=== PATIENT | male | born 1955 | race Caucasian/White ===

== ENCOUNTER 2022-03-30 17:00 | Inpatient (IN) | payer MEDICARE, OTHER ==
[~2022-03-30] VITALS: Ht 167.6 cm; Wt 51.3 kg
--- NOTE | 2022-03-30 18:15 | NUR ---
Pt arrived BIBA with c/o SOB. Pt is on 15Lpm of O2 and saturating on 100%. Seen by ERMD for MSE.
[2022-03-30 18:21] LABS: HEMATOCRIT 31.1 % (36.7-47.1); MEAN CORPUSCULAR VOLUME 73.8 fL (73.0-96.2); PLATELET COUNT (AUTO) 675 K/uL (152-348)
[2022-03-30 18:51] LABS: CARBON DIOXIDE 34 mmol/L (21-32); CHLORIDE 98 mmol/L (98-107); CREATININE 0.4 mg/dL (0.6-1.3); GLUCOSE 133 mg/dL (74-106); POTASSIUM 5.4 mmol/L (3.5-5.1); UREA NITROGEN, BLOOD 10 mg/dL (7-18)
[2022-03-30 19:03] LABS: ALANINE AMINOTRANSFERASE 11 U/L (16-63); ALKALINE PHOSPHATASE 125 U/L (50-136); ASPARTATE AMINOTRANSFERASE 42 U/L (15-37); BILIRUBIN,DIRECT < 0.1 mg/dL (0.0-0.2); BILIRUBIN,TOTAL 0.2 mg/dL (0.2-1.0); TOTAL PROTEIN, SERUM 7.2 g/dL (6.4-8.2)
--- NOTE | 2022-03-30 19:13 | NUR ---
Endorsed to Sherrie KEE.
[2022-03-30 19:24] LABS: EOSINOPHILS % (MANUAL) 1 % (0-8); LYMPHOCYTES % (MANUAL) 7 % (20-40); MONOCYTES % (MANUAL) 3 % (2-10); NEUTROPHILS % (MANUAL) 89 % (42-75)
[2022-03-30] MEDS ORDERED: CEFTRIAXONE 1 G in IV DEXTROSE 5% 50 ML IV ONE (19:30)
[2022-03-30] MEDS ORDERED: AZITHROMYCIN IV 500 MG in IV DEXTROSE 5% 250 ML IV ONE (19:30)
[2022-03-30] MEDS ORDERED: FUROSEMIDE 40 MG/4 ML VIAL IV ONE (19:30)
--- NOTE | 2022-03-30 19:30 | NUR ---
Patient is admitted to CCU. no CCU bed available at this moment. Patient will be in ER until CCU bed is available. ER charting will be done
[2022-03-30 19:48] LABS: ABG BASE EXCESS 9.5 mmol/L; ABG HCO3 35.5 mmol/L; ABG PCO2 56.7 mmHg (35.0-45.0); ABG PH 7.415 (7.350-7.450); ABG PO2 403.5 mmHg (75.0-100.0); ABG SITE LEFT RADIAL; ABG TOTAL HEMOGLOBIN 9.8 G/dL (13.5-18.0); COHb 0.2 % (0.5-1.5); MetHb 0.3 % (0.0-1.5); O2Hb 99.5 % (94.0-97.0); VENT MODE BIPAP
[2022-03-30] MEDS ORDERED: CEFTRIAXONE /D5W 50ML IVPB **ER PYXIS IV ONE (19:50)
[2022-03-30] MEDS ORDERED: AZITHROMYCIN 500MG/ D5W 250ML IVPB **ER PYXIS ONLY IV ONE (19:51)
[2022-03-30 21:13] LABS: ABG BASE EXCESS 9.4 mmol/L; ABG HCO3 34.8 mmol/L; ABG PCO2 51.7 mmHg (35.0-45.0); ABG PH 7.446 (7.350-7.450); ABG PO2 106.1 mmHg (75.0-100.0); ABG SITE LEFT RADIAL; ABG TOTAL HEMOGLOBIN 10.6 G/dL (13.5-18.0); COHb 0.1 % (0.5-1.5); MetHb 0.3 % (0.0-1.5); O2Hb 97.9 % (94.0-97.0); VENT MODE BIPAP
[2022-03-30] MEDS ORDERED: MAGNESIUM HYDROXIDE 30 ML LIQUID UDC PO PRN (22:00)
[2022-03-30] MEDS ORDERED: ONDANSETRON 4 MG/2 ML VIAL IV PRN (22:00)
[2022-03-30] MEDS ORDERED: ACETAMINOPHEN 325 MG TABLET PO PRN (22:00)
[2022-03-30] MEDS ORDERED: DEXTROSE 50% 50 ML DISP.SYRIN IV PRN (22:00)
[2022-03-30] MEDS ORDERED: REMEDY ESSENTIAL ZINC PASTE 113 GM TP PRN (22:00)
[2022-03-30 22:31] LABS: IRON, SERUM 33 ug/dL (50-175)
[2022-03-30 22:55] LABS: FERRITIN 2803 ng/mL (26-388)
[2022-03-31] VITALS (11 sets, daily range): BP systolic 94–112; BP diastolic 46–69
[2022-03-31] MEDS: BLOOD SUGAR DIAGNOSTIC 1 EACH STRIP VI SCH ×4 (00:20→17:56)
[2022-03-31] MEDS ORDERED: ENOXAPARIN SODIUM 40 MG/0.4 ML DISP.SYRIN SQ ONE ×2 (00:40→21:25)
[2022-03-31] MEDS: ENOXAPARIN SODIUM 40 MG/0.4 ML DISP.SYRIN SQ SCH ×2 (00:43→21:27)
[2022-03-31] MEDS ORDERED: methylPREDNISolone SOD SUCC 40 MG/ML VIAL ONE ×4 (00:43→17:33)
[2022-03-31] MEDS: methylPREDNISolone SOD SUCC 40 MG/ML VIAL IV SCH ×4 (00:46→17:52)
--- NOTE | 2022-03-31 03:32 | NUR ---
PATIENT PLACED ON BI/PAP WITH LARGE FULL MASK, APPROX. 19:00 BY RT , WITH CURRENT INITIAL SETTINGS, 15/5, R16, 100%, WITH ABG DONE AT 19;35, TITRATE FIO2 TO 40%, GIVEN RESULTS TO DR Lorenzo CARTER , 40%, ALSO ANOTHER ABG DONE BY 20;50, SAT 99%, RESTING WELL. Kika HOFFMAN SAFETY EQUIPMENT TESTER Addendum: 03/31/22 at 0335 by STEVE HOFFMAN RT Amended: Links added.
[2022-03-31 07:15] LABS: HEMATOCRIT 29.4 % (36.7-47.1); MEAN CORPUSCULAR HEMOGLOBIN 22.6 uug (23.8-33.4); MEAN CORPUSCULAR VOLUME 73.4 fL (73.0-96.2); PLATELET COUNT (AUTO) 645 K/uL (152-348)
--- NOTE | 2022-03-31 07:15 | NUR ---
Electrician [employer] assumes care: nursing SBAR received from CHILANGO Balderas. This is an ICU/CCU patient holding in ER, pending available ICU/CCU nurse & bed in 2nd floor. Patient is resting comfortably in bed with eyes closed, tolerating BIPAP well with current parameters: 15/5, FiO2=40%
[2022-03-31 07:42] LABS: CARBON DIOXIDE 35 mmol/L (21-32); CHLORIDE 95 mmol/L (98-107); CHOLESTEROL 190 mg/dL (<200); CREATININE 0.5 mg/dL (0.6-1.3); GLUCOSE 140 mg/dL (74-106); HDL CHOLESTEROL 42 mg/dL (40-60); MAGNESIUM 1.8 mg/dL (1.8-2.4); PHOSPHOROUS 4.6 mg/dL (2.5-4.9); TRIGLYCERIDES 102 MG/DL (30-150); UREA NITROGEN, BLOOD 11 mg/dL (7-18)
--- NOTE | 2022-03-31 11:34 | NUR ---
Nursing SBAR given to ICU/CCU nurse Maico Hoover.
[2022-03-31] MEDS: INSULIN REGULAR, HUMAN 300 UNIT/3 ML VIAL SQ PRN ×2 (12:34→17:57)
[2022-03-31] MEDS ORDERED: CLON0.1T PO (13:42)
[2022-03-31] MEDS ORDERED: APIX5TAB PO (13:42)
[2022-03-31] MEDS ORDERED: CRAN425C6 PO (13:42)
[2022-03-31] MEDS ORDERED: DOCU-141 PO (13:44)
[2022-03-31] MEDS ORDERED: FAMO-132 PO (13:44)
[2022-03-31] MEDS ORDERED: FERR325T28 PO (13:44)
[2022-03-31] MEDS ORDERED: IPRA0.2S6 NEB (13:45)
[2022-03-31] MEDS ORDERED: HYDR-4209 PO (13:45)
[2022-03-31] MEDS ORDERED: INSU100I45 SQ (13:45)
[2022-03-31] MEDS ORDERED: LABE100T5 PO (13:48)
[2022-03-31] MEDS ORDERED: SITA100T PO (13:48)
[2022-03-31] MEDS ORDERED: MAGN400O6 PO (13:49)
[2022-03-31] MEDS ORDERED: MULT-1075 PO (13:49)
[2022-03-31] MEDS ORDERED: BLOO-360 IN (13:50)
[2022-03-31] MEDS ORDERED: PRED20TA PO (13:52)
[2022-03-31] MEDS ORDERED: SILD20TA2 PO (13:52)
[2022-03-31] MEDS ORDERED: QUET50TA PO (13:52)
[2022-03-31] MEDS ORDERED: ERTU5TAB PO (13:55)
[2022-03-31] MEDS ORDERED: BENZ-13 PO (13:55)
[2022-03-31] MEDS ORDERED: ACET-2605 PO ×2 (13:55)
[2022-03-31] MEDS ORDERED: ACET-2154 PO (13:56)
[2022-03-31] MEDS ORDERED: CHOL-35 PO (13:58)
[2022-03-31] MEDS ORDERED: ASCO500T10 PO (13:58)
[2022-03-31] MEDS ORDERED: CRAN3875 PO (13:58)
--- NOTE | 2022-03-31 15:20 | NUR ---
shift change, AM technologist informed that RN will call when ready for CT Chest w/o contrast to be done by 5pm
--- NOTE | 2022-03-31 18:14 | NUR ---
phoned the ER for the patient for update, RT not available. RN will call Radiology Department when ready.
[2022-03-31] MEDS ORDERED: IPRATROPIUM BROMIDE 0.5 MG/2.5 ML NEBU NEB PRN (19:45)
[2022-03-31] MEDS ORDERED: ALBUTEROL SULFATE 2.5 MG/3 ML NEBU NEB PRN (19:45)
[2022-03-31] MEDS ORDERED: CEFTRIAXONE 1 G in IV DEXTROSE 5% 50 ML IV SCH (20:00)
[2022-03-31] MEDS ORDERED: AZITHROMYCIN 500MG/ D5W 250ML IVPB **ER PYXIS ONLY IV ONE (21:25)
[2022-03-31] MEDS: FAMOTIDINE. 20 MG/2 ML VIAL IV SCH (21:26)
[2022-03-31] MEDS ORDERED: FAMOTIDINE. 20 MG/2 ML VIAL IV ONE (21:26)
[2022-03-31] MEDS: AZITHROMYCIN IV 500 MG in IV DEXTROSE 5% 250 ML IV SCH (21:26)
[2022-03-31] MEDS ORDERED: CEFEPIME HCL 1 G VIAL ONE (22:05)
[2022-03-31] MEDS: CEFEPIME HCL 1 G in IV DEXTROSE 5% 50 ML IV SCH (22:09)
--- NOTE | 2022-03-31 22:55 | NUR ---
Transfered to CCU via [facility] with no distress noted
[2022-04-01] VITALS (20 sets, daily range): BP systolic 101–138; BP diastolic 60–84
[2022-04-01] MEDS: methylPREDNISolone SOD SUCC 40 MG/ML VIAL IV SCH ×4 (00:12→19:58)
[2022-04-01] MEDS: BLOOD SUGAR DIAGNOSTIC 1 EACH STRIP VI SCH ×4 (00:25→12:00)
--- NOTE | 2022-04-01 00:42 | NUR ---
RECEIVED REPORT FROM ER NURSE ANDNAGI RN, PATIENT TRANSFER VIA GURNEY, COMPLETE ASSESSMENT DONE AND BI-PAP IN PLACE AND TOLERATED WELL.
--- NOTE | 2022-04-01 02:38 | NUR ---
LORENA CHEN MADE AWARE OF CHEST CT NNO, JUST HAVE DAY SHIFT TO F/U.
--- NOTE | 2022-04-01 04:31 | NUR ---
PATIENT WAS IN ER, THEN LATER TRANSPORTED TO CCU #3 WITH RT ASSIST, PT BACK ON BI/PAP WITH SETTINGS, 15/5, R16, 40%, TITRATE TO 35%, TAKE OFF APPOX. 0500, WAIT 1 HOUR ,ABG TO BE DONE OFF BI/PAP. Kika HOFFMAN UI DESIGNER Addendum: 04/01/22 at 0433 by STEVE HOFFMAN RT Amended: Links added.
[2022-04-01 05:41] LABS: HEMATOCRIT 28.1 % (36.7-47.1); MEAN CORPUSCULAR HEMOGLOBIN 22.4 uug (23.8-33.4); MEAN CORPUSCULAR VOLUME 72.9 fL (73.0-96.2); PLATELET COUNT (AUTO) 708 K/uL (152-348)
[2022-04-01 05:43] LABS: CARBON DIOXIDE 36 mmol/L (21-32); CHLORIDE 98 mmol/L (98-107); CREATININE 0.5 mg/dL (0.6-1.3); GLUCOSE 165 mg/dL (74-106); MAGNESIUM 1.8 mg/dL (1.8-2.4); PHOSPHOROUS 3.7 mg/dL (2.5-4.9); POTASSIUM 4.1 mmol/L (3.5-5.1); UREA NITROGEN, BLOOD 28 mg/dL (7-18)
[2022-04-01 06:08] LABS: ABG BASE EXCESS 6.2 mmol/L; ABG PCO2 46.3 mmHg (35.0-45.0); ABG PH 7.444 (7.350-7.450); ABG PO2 82.5 mmHg (75.0-100.0); ABG SITE LEFT RADIAL; ABG TOTAL HEMOGLOBIN 10.3 G/dL (13.5-18.0); COHb 0.2 % (0.5-1.5); MetHb 0.1 % (0.0-1.5); O2Hb 96.1 % (94.0-97.0); VENT MODE Nasal Cannula
[2022-04-01 06:36] LABS: LYMPHOCYTES % (MANUAL) 10 % (20-40); MONOCYTES % (MANUAL) 5 % (2-10); NEUTROPHILS % (MANUAL) 85 % (42-75)
[2022-04-01] MEDS: CEFEPIME HCL 1 G in IV DEXTROSE 5% 50 ML IV SCH ×3 (06:39→22:00)
--- NOTE | 2022-04-01 09:12 | NUR ---
PT c/o feeling hot and became restless. 02 sat 75 with o2 via NC at 4l/min. O2 increased to 5 l min NC and RT called. . Placed back on the BIPAP as o2sat went to 75. will continue to monitor.
[2022-04-01] MEDS ORDERED: LORAZEPAM 2 MG/1 ML VIAL IV PRN (09:30)
[2022-04-01] MEDS: FAMOTIDINE. 20 MG/2 ML VIAL IV SCH (09:40)
--- NOTE | 2022-04-01 10:00 | NUR ---
Patient is asleep. resting well with BIPAP in place , I/E 13/ as per RT's report.
[2022-04-01] MEDS: CHOLECALCIFEROL 1,000 UNIT TABLET PO SCH (10:15)
[2022-04-01] MEDS: MULTIVITAMINS,THERAPEUTIC TABLET PO SCH (10:15)
[2022-04-01] MEDS: APIXABAN 5 MG TABLET PO SCH ×2 (10:15→21:00)
--- NOTE | 2022-04-01 10:59 | NUR ---
ABG COMPLETED BY RT. Result called to MD Ember Chambers. hco3 is 10.9, ph 7.29,,poa 108.8. Awaits orderes.
[2022-04-01] MEDS: SILDENAFIL 20 MG TABLET PO SCH (14:00)
[2022-04-01] MEDS: ASCORBIC ACID 500 MG TABLET PO SCH (18:00)
[2022-04-01] MEDS: FERROUS SULFATE 325 MG TABEC PO SCH (18:00)
--- NOTE | 2022-04-01 19:00 | NUR ---
RECEIVED REPORT FROM DAV KEE, IPAD SET UP FOR PATIENT FOR QATARI INTERPRETATION.
[2022-04-01] MEDS ORDERED: DOCUSATE SODIUM 100 MG CAPSULE PO SCH (21:00)
[2022-04-01] MEDS: AZITHROMYCIN IV 500 MG in IV DEXTROSE 5% 250 ML IV SCH (21:11)
[2022-04-01] MEDS: QUETIAPINE FUMARATE 25 MG TABLET PO SCH (21:14)
--- NOTE | 2022-04-01 22:59 | NUR ---
data warehousing architect error
--- NOTE | 2022-04-01 23:02 | NUR ---
Change of shift report given. Pt slept all day. Po meds were held due to drowsiness.Ember Chambers made aware.
[2022-04-02] VITALS (12 sets, daily range): BP systolic 90–106; BP diastolic 51–64
[2022-04-02] MEDS: methylPREDNISolone SOD SUCC 40 MG/ML VIAL IV SCH ×4 (00:47→18:51)
[2022-04-02] MEDS: SILDENAFIL 20 MG TABLET PO SCH ×4 (00:47→23:55)
[2022-04-02] MEDS: CEFEPIME HCL 1 G in IV DEXTROSE 5% 50 ML IV SCH ×3 (05:49→23:47)
[2022-04-02] MEDS: BLOOD SUGAR DIAGNOSTIC 1 EACH STRIP VI SCH ×2 (05:51)
[2022-04-02 05:53] LABS: ABG BASE EXCESS 10.9 mmol/L; ABG HCO3 36.2 mmol/L; ABG PCO2 52.3 mmHg (35.0-45.0); ABG PH 7.458 (7.350-7.450); ABG PO2 190.1 mmHg (75.0-100.0); ABG SITE RIGHT BRACHIAL; COHb 0.3 % (0.5-1.5); MetHb 0.3 % (0.0-1.5)
[2022-04-02] MEDS: APIXABAN 5 MG TABLET PO SCH ×2 (10:35→21:00)
[2022-04-02] MEDS: MULTIVITAMINS,THERAPEUTIC TABLET PO SCH (10:35)
[2022-04-02] MEDS: CHOLECALCIFEROL 1,000 UNIT TABLET PO SCH (10:36)
[2022-04-02] MEDS ORDERED: ONDANSETRON 4 MG/2 ML VIAL IV PRN (10:45)
[2022-04-02] MEDS: DOCUSATE SODIUM 100 MG CAPSULE PO SCH ×2 (10:46→23:44)
[2022-04-02] MEDS: FERROUS SULFATE 325 MG TABEC PO SCH (18:51)
[2022-04-02] MEDS: ASCORBIC ACID 500 MG TABLET PO SCH (18:51)
[2022-04-02] MEDS: AZITHROMYCIN 250 MG TABLET PO SCH (23:44)
[2022-04-02] MEDS: FAMOTIDINE 20 MG TABLET PO SCH (23:45)
[2022-04-02] MEDS: QUETIAPINE FUMARATE 25 MG TABLET PO SCH (23:56)
[2022-04-03] VITALS (18 sets, daily range): BP systolic 89–117; BP diastolic 35–76
[2022-04-03] MEDS: BLOOD SUGAR DIAGNOSTIC 1 EACH STRIP VI SCH ×4 (00:01→17:32)
--- NOTE | 2022-04-03 00:01 | NUR ---
Accucheck 138: refused Regular Insulin 2 units.
[2022-04-03] MEDS: INSULIN REGULAR, HUMAN 300 UNIT/3 ML VIAL SQ PRN ×3 (01:03→12:01)
[2022-04-03] MEDS: methylPREDNISolone SOD SUCC 40 MG/ML VIAL IV SCH ×4 (01:12→17:32)
[2022-04-03 04:51] LABS: HEMATOCRIT 28.9 % (36.7-47.1); MEAN CORPUSCULAR HEMOGLOBIN 22.1 uug (23.8-33.4); MEAN CORPUSCULAR VOLUME 72.7 fL (73.0-96.2); PLATELET COUNT (AUTO) 705 K/uL (152-348)
[2022-04-03 04:57] LABS: CARBON DIOXIDE 38 mmol/L (21-32); CHLORIDE 99 mmol/L (98-107); CREATININE 0.3 mg/dL (0.6-1.3); GLUCOSE 154 mg/dL (74-106); MAGNESIUM 2.2 mg/dL (1.8-2.4); PHOSPHOROUS 2.5 mg/dL (2.5-4.9); POTASSIUM 4.5 mmol/L (3.5-5.1); UREA NITROGEN, BLOOD 19 mg/dL (7-18)
[2022-04-03] MEDS: CEFEPIME HCL 1 G in IV DEXTROSE 5% 50 ML IV SCH ×3 (06:17→21:34)
[2022-04-03] MEDS: SILDENAFIL 20 MG TABLET PO SCH ×4 (06:17→22:00)
[2022-04-03] MEDS: PROTEIN SUPPLEMENT (PROSTAT) 30 ML LIQUID PO SCH (08:00)
[2022-04-03] MEDS ORDERED: DOCUSATE SODIUM 100 MG CAPSULE PO SCH (09:00)
[2022-04-03] MEDS: DOCUSATE SODIUM 100 MG CAPSULE PO SCH ×3 (09:35→21:32)
[2022-04-03] MEDS: CHOLECALCIFEROL 1,000 UNIT TABLET PO SCH (09:35)
[2022-04-03] MEDS: MULTIVITAMINS,THERAPEUTIC TABLET PO SCH (09:35)
[2022-04-03] MEDS: FAMOTIDINE 20 MG TABLET PO SCH ×3 (09:36→17:32)
[2022-04-03] MEDS: GLUCERNA SHAKE 237 ML CAN PO SCH (10:26)
[2022-04-03] MEDS: APIXABAN 5 MG TABLET PO SCH ×2 (11:32→21:00)
[2022-04-03] MEDS: ASCORBIC ACID 500 MG TABLET PO SCH (17:32)
[2022-04-03] MEDS: FERROUS SULFATE 325 MG TABEC PO SCH (17:32)
--- NOTE | 2022-04-03 18:52 | NUR ---
PT HAVE BEEN REFUSING SOME OF HIS MEDS AND LUNCH..TOTAL BATH GIVEN TODAY..LINENS CHANGED. PT REFUSED TO TAKE HIS INSULIN AND ALSO REFUSED DINNER..PT IN NO ACUTE DISTRESS AT THIS TIME..
[2022-04-03] MEDS: SENNOSIDES 1 TABLET PO SCH (19:00)
--- NOTE | 2022-04-03 19:13 | NUR ---
INTAKE 450 PASTRANA OUTPUT 1200
[2022-04-03] MEDS: QUETIAPINE FUMARATE 25 MG TABLET PO SCH ×2 (21:00→21:32)
[2022-04-03] MEDS: AZITHROMYCIN 250 MG TABLET PO SCH (21:33)
[2022-04-04] VITALS (11 sets, daily range): BP systolic 96–121; BP diastolic 52–84
[2022-04-04] MEDS: methylPREDNISolone SOD SUCC 40 MG/ML VIAL IV SCH ×4 (01:00→17:31)
[2022-04-04 05:37] LABS: HEMATOCRIT 28.1 % (36.7-47.1); MEAN CORPUSCULAR HEMOGLOBIN 22.5 uug (23.8-33.4); PLATELET COUNT (AUTO) 726 K/uL (152-348)
[2022-04-04] MEDS: CEFEPIME HCL 1 G in IV DEXTROSE 5% 50 ML IV SCH ×3 (05:37→21:02)
[2022-04-04 05:45] LABS: CHLORIDE 100 mmol/L (98-107); CREATININE 0.4 mg/dL (0.6-1.3); GLUCOSE 193 mg/dL (74-106); PHOSPHOROUS 2.7 mg/dL (2.5-4.9); POTASSIUM 3.8 mmol/L (3.5-5.1); UREA NITROGEN, BLOOD 17 mg/dL (7-18)
[2022-04-04 05:49] LABS: CARBON DIOXIDE 40 mmol/L (21-32)
[2022-04-04] MEDS: BLOOD SUGAR DIAGNOSTIC 1 EACH STRIP VI SCH ×4 (06:00→17:31)
[2022-04-04] MEDS: SILDENAFIL 20 MG TABLET PO SCH ×3 (06:00→21:05)
--- NOTE | 2022-04-04 06:00 | NUR ---
[id number] CONT. WITH STABLE VS. SR. IV I/P VIA RIGHT WRIST. PT HAS O2 4L/NC. RESPS ARE REG/UNLAB. POX 98%-100%. PT DENIES ANY PAIN. PT HAS BEEN NON-COMPLIANT REGARDING MED AND FOOD. PT REFUSED INSLULIN COVERAGE X2. PT ALSO REFUSED ALMOST ALL OF HIS MEDICATIONS. BOWLING BALL FINISHER GARRICK AND PHARM INFORMED. PT HAS F/C-U/O ADEQ-1000CC OUT-DARWIN/CLR. PT HAS BEEN SLEEPING QUIETLY. GEN COND. HAS BEEN STABLE. PT ENDORSED TO CHILANGO GRAY. CHAI KEE
[2022-04-04] MEDS: MULTIVITAMINS,THERAPEUTIC TABLET PO SCH (08:39)
[2022-04-04] MEDS: CHOLECALCIFEROL 1,000 UNIT TABLET PO SCH (08:39)
[2022-04-04] MEDS: FAMOTIDINE 20 MG TABLET PO SCH ×2 (08:39→17:31)
[2022-04-04] MEDS: DOCUSATE SODIUM 100 MG CAPSULE PO SCH ×2 (08:39→21:05)
[2022-04-04] MEDS: APIXABAN 5 MG TABLET PO SCH ×2 (08:41→21:06)
[2022-04-04] MEDS: GLUCERNA SHAKE 237 ML CAN PO SCH (08:51)
--- NOTE | 2022-04-04 10:50 | NUR ---
Attending MARIZA Garcia in the unit to follow up on pt. report given orders to downgrade pt. to telemetry received.
--- NOTE | 2022-04-04 14:25 | NUR ---
Received this transfer from CCU by bed. Placed on Tele TD, SR. Awake, alert, oriented x 4. O2 at 4L/NC with O2 sat of 100%, titrated to 3L/NC with O2 sat of 96%. Skin checked noted DTI on sacral area. Photo and skin care initiated. Repositioned in bed comfortably. Blount catheter to drainage bag with yellow urine.
[2022-04-04] MEDS: FERROUS SULFATE 325 MG TABEC PO SCH (17:31)
[2022-04-04] MEDS: ASCORBIC ACID 500 MG TABLET PO SCH (17:31)
--- NOTE | 2022-04-04 18:00 | NUR ---
O2 titrated to 2L/NC with O2 sat of 95%. Not in respiratory distress. Refused Insulin sliding scale.
[2022-04-04] MEDS: PROTEIN SUPPLEMENT (PROSTAT) 30 ML LIQUID PO SCH (21:00)
[2022-04-04] MEDS: QUETIAPINE FUMARATE 25 MG TABLET PO SCH (21:05)
[2022-04-04] MEDS: SENNOSIDES 1 TABLET PO SCH (21:09)
--- NOTE | 2022-04-04 21:30 | NUR ---
received in bed, alert oriented, no sob no chest pain, cont on 2 liter oxygen no desaturation noted, denies pain at this time. Patient took his 2100 medication po with food only, provided another dinner meal in order to take his meds, patient uncooperative with medication and care, patient refused to moved or turn and reposition, prefer to seat on his sacrum only, patient easily get upset for anything, approach calmly cont to monitor.
[2022-04-05] VITALS (8 sets, daily range): BP systolic 97–117; BP diastolic 54–71
[2022-04-05] MEDS: methylPREDNISolone SOD SUCC 40 MG/ML VIAL IV SCH ×3 (00:55→21:27)
[2022-04-05] MEDS: BLOOD SUGAR DIAGNOSTIC 1 EACH STRIP VI SCH ×4 (00:58→17:30)
--- NOTE | 2022-04-05 00:58 | NUR ---
blood sugar 253, refused insulin coverage.
[2022-04-05] MEDS: CEFEPIME HCL 1 G in IV DEXTROSE 5% 50 ML IV SCH ×3 (05:58→21:28)
--- NOTE | 2022-04-05 06:49 | NUR ---
patient continue to refused to take his 0600 po meds, patient wanted a hot meal with his medication, offered sugar free pudding or milk or apple juice but refused meds, patient claim that f/c not draining, but with yellow color urine, 1000cc of urine output. patient appear suspicious, paranoia behavior about everything food, care, etc. ,
[2022-04-05] MEDS: SILDENAFIL 20 MG TABLET PO SCH ×3 (07:08→21:27)
[2022-04-05 07:14] LABS: HEMATOCRIT 30.5 % (36.7-47.1); PLATELET COUNT (AUTO) 773 K/uL (152-348)
--- NOTE | 2022-04-05 07:30 | NUR ---
Sleeping, appears comfortable. O2 at 2L/NC. Tele SR
[2022-04-05 07:34] LABS: CARBON DIOXIDE 38 mmol/L (21-32); CHLORIDE 102 mmol/L (98-107); CREATININE 0.4 mg/dL (0.6-1.3); GLUCOSE 212 mg/dL (74-106); MAGNESIUM 2.4 mg/dL (1.8-2.4); PHOSPHOROUS 2.8 mg/dL (2.5-4.9); POTASSIUM 4.2 mmol/L (3.5-5.1); UREA NITROGEN, BLOOD 17 mg/dL (7-18)
[2022-04-05] MEDS: CHOLECALCIFEROL 1,000 UNIT TABLET PO SCH (08:27)
[2022-04-05] MEDS: DOCUSATE SODIUM 100 MG CAPSULE PO SCH ×2 (08:27→21:27)
[2022-04-05] MEDS: MULTIVITAMINS,THERAPEUTIC TABLET PO SCH (08:27)
[2022-04-05] MEDS: FAMOTIDINE 20 MG TABLET PO SCH ×2 (08:28→17:29)
[2022-04-05] MEDS: APIXABAN 5 MG TABLET PO SCH ×2 (08:28→21:39)
[2022-04-05] MEDS: GLUCERNA SHAKE 237 ML CAN PO SCH (08:29)
--- NOTE | 2022-04-05 11:00 | NUR ---
Assisted out of bed by PT x 2 , able to stand with steps
--- NOTE | 2022-04-05 11:18 | NUR ---
WOUND CARE CONSULT: PT SEEN FOR SKIN ASSESSMENT AND NOTED TO BE VERY THIN AND BONY WITH BLANCHABLE REDNESS TO SACRUM AND PERIANAL AREA OF EXCORIATION. RECOMMENDATIONS MADE FOR SKIN PROTECTION. DISCUSSED WITH NURSING STAFF. IN AGREEMENT WITH PLAN OF CARE. Addendum: 04/05/22 at 1120 by JUWAN VELEZ RN Amended: Links added.
[2022-04-05 11:40] LABS: LYMPHOCYTES % (MANUAL) 16 % (20-40); MONOCYTES % (MANUAL) 7 % (2-10); NEUTROPHILS % (MANUAL) 77 % (42-75)
--- NOTE | 2022-04-05 12:00 | NUR ---
BG 300, refused Insulin sliding scale
--- NOTE | 2022-04-05 14:00 | NUR ---
Transferred to bedside commode x 2 max assist. With BM to formed stool in moderate amount. With urge to void and severe suprapubic discomfort. Johnson catheter but not draining at this time. Transferred back to bed. Bladder scan done with 868 residual urine. Johnson catheter irrigated but then noted leakage of urine. New johnson catheter fr 16 placed with 900 initial urine output. Patient comfortable after.
[2022-04-05] MEDS: PROTEIN SUPPLEMENT (PROSTAT) 30 ML LIQUID PO SCH (15:41)
[2022-04-05] MEDS: ASCORBIC ACID 500 MG TABLET PO SCH (17:29)
[2022-04-05] MEDS: FERROUS SULFATE 325 MG TABEC PO SCH (17:29)
--- NOTE | 2022-04-05 18:24 | NUR ---
BG 188, refused Insulin sliding scale coverage. Blount catheter with adequate urine output. O2 at 1L/NC with O2 sat of 95%. Transferred to Tele.
[2022-04-05 19:15] LABS: *BILIRUBIN,URIN NEGATIVE (NEGATIVE); *BLOOD, URINE 1+ (NEGATIVE); *CLARITY,URINE CLEAR (CLEAR); *COLOR,URINE YELLOW (YELLOW); *KETONES,URINE NEGATIVE (NEGATIVE); *UROBILINOGEN,URINE 0.2 E.U./dl (NORMAL); LEUKOCYTE ESTERASE ,URINE TRACE (NEGATIVE); NITRITE, URINE NEGATIVE (NEGATIVE); PH,URINE 7.5 (5.0-8.0); UGLUCOSE NEGATIVE (NEGATIVE)
[2022-04-05] MEDS: QUETIAPINE FUMARATE 25 MG TABLET PO SCH (21:28)
[2022-04-05] MEDS: SENNOSIDES 1 TABLET PO SCH (21:28)
[2022-04-05 22:31] LABS: BACTERIA,URINE FEW /HPF (NONE SEEN); SQUAMOUS EPITHELIAL CELL,UR FEW /HPF (NONE SEEN); WBC,URINE 0-3 /HPF (0-3); YEAST,URINE RARE /HPF (NONE SEEN)
[2022-04-06] VITALS: BP 99/61
[2022-04-06] MEDS: BLOOD SUGAR DIAGNOSTIC 1 EACH STRIP VI SCH ×4 (00:37→18:57)
[2022-04-06] MEDS: INSULIN REGULAR, HUMAN 300 UNIT/3 ML VIAL SQ PRN (00:40)
[2022-04-06 04:00] VITALS: BP 98/63
--- NOTE | 2022-04-06 05:00 | NUR ---
AAOx4 Needs attended. VSS Patient on RA with pulse ox 95% No acute distress noted. Fall precautions maintained. Kept comfortable. Accucheck 189 refused coverage.
[2022-04-06] MEDS: CEFEPIME HCL 1 G in IV DEXTROSE 5% 50 ML IV SCH ×3 (05:41→21:00)
[2022-04-06] MEDS: SILDENAFIL 20 MG TABLET PO SCH ×3 (05:47→21:00)
[2022-04-06 07:39] LABS: HEMATOCRIT 31.1 % (36.7-47.1); MEAN CORPUSCULAR HEMOGLOBIN 22.6 uug (23.8-33.4); MEAN CORPUSCULAR VOLUME 73.7 fL (73.0-96.2); PLATELET COUNT (AUTO) 802 K/uL (152-348)
[2022-04-06] MEDS: PROTEIN SUPPLEMENT (PROSTAT) 30 ML LIQUID PO SCH (08:00)
[2022-04-06 08:16] LABS: CARBON DIOXIDE 36 mmol/L (21-32); CHLORIDE 102 mmol/L (98-107); CREATININE 0.3 mg/dL (0.6-1.3); GLUCOSE 128 mg/dL (74-106); MAGNESIUM 2.3 mg/dL (1.8-2.4); PHOSPHOROUS 2.9 mg/dL (2.5-4.9); POTASSIUM 4.1 mmol/L (3.5-5.1); UREA NITROGEN, BLOOD 17 mg/dL (7-18)
[2022-04-06] MEDS: MULTIVITAMINS,THERAPEUTIC TABLET PO SCH (09:43)
[2022-04-06] MEDS: DOCUSATE SODIUM 100 MG CAPSULE PO SCH ×2 (09:43→20:31)
[2022-04-06] MEDS: CHOLECALCIFEROL 1,000 UNIT TABLET PO SCH (09:43)
[2022-04-06] MEDS: FAMOTIDINE 20 MG TABLET PO SCH ×2 (09:44→18:27)
[2022-04-06] MEDS: APIXABAN 5 MG TABLET PO SCH ×2 (09:44→20:33)
[2022-04-06] MEDS: methylPREDNISolone SOD SUCC 40 MG/ML VIAL IV SCH ×2 (09:45→20:30)
[2022-04-06] MEDS: GLUCERNA SHAKE 237 ML CAN PO SCH (09:46)
[2022-04-06 11:46] VITALS: BP 114/64
[2022-04-06 11:48] LABS: BAND % (MANUAL) 2 % (0-10); LYMPHOCYTES % (MANUAL) 9 % (20-40); MONOCYTES % (MANUAL) 5 % (2-10); NEUTROPHILS % (MANUAL) 84 % (42-75)
[2022-04-06] MEDS ORDERED: PRED20TA PO (15:11)
[2022-04-06] MEDS ORDERED: CEFE1FRO IV (15:11)
[2022-04-06 15:46] VITALS: BP 96/60
[2022-04-06] MEDS: ASCORBIC ACID 500 MG TABLET PO SCH (18:25)
[2022-04-06] MEDS: FERROUS SULFATE 325 MG TABEC PO SCH (18:25)
[2022-04-06 20:00] VITALS: BP 99/60
[2022-04-06] MEDS: QUETIAPINE FUMARATE 25 MG TABLET PO SCH (20:30)
[2022-04-06] MEDS: SENNOSIDES 1 TABLET PO SCH (20:31)
[2022-04-07] VITALS: BP 119/65
--- NOTE | 2022-04-07 01:44 | NUR ---
PASTRANA CATHETER REMOVED DUE TO LEAKING. ATTEMPTED TO REINSERT F/C BUT WAS UNSUCCESSFUL. PAGED. WAITING FOR NEW ORDERS.
--- NOTE | 2022-04-07 03:50 | NUR ---
REFUSED BLOOD SUGAR CHECK AND INSULIN COVERAGE. PATIENT STATED HE WAS TIRED OF THE STAFF STICKING HIM WITH NEEDLES AND TRYING TO GIVE HIM MEDS WITHOUT FOOD. RISKS AND BENEFITS EXPLAINED X3. PATIENT CONTINUED TO REFUSE. MADE AWARE. NO NEW ORDERS AT THIS TIME.
[2022-04-07] MEDS: CEFEPIME HCL 1 G in IV DEXTROSE 5% 50 ML IV SCH (05:00)
[2022-04-07] MEDS: SILDENAFIL 20 MG TABLET PO SCH (05:01)
[2022-04-07] MEDS: BLOOD SUGAR DIAGNOSTIC 1 EACH STRIP VI SCH ×3 (05:01→12:24)
--- NOTE | 2022-04-07 06:40 | NUR ---
AT APPROX 0620 COMMUNICATIONS LEAD AND NURSE HEARD A LOUD THUD COMING FROM ROOM 314. UPON ENTERING THE ROOM, PATIENT WAS NOTED ON RIGHT SIDE LYING ON FLOOR WITH FACE TOUCHING THE FLOOR. ALF ASSESSMENT PERFORMED BY NURSE. PATIENT PRESENTED WITH INCREASED CONFUSION. WHEN ASKED ABOUT THE FALL, PATIENT STATED HE DIDN'T WANT TO BOTHER THE NURSES. PATIENT NOTED WITH LARGE BUMP ABOVE RIGHT EYE BROW AFTER BEING PUT BACK TO BED BY THREE STAFF NURSES. RANGE OF MOTION WITH WNL. CALL LIGHT USE REINFORCED. PATIENT REFUSED TO VERBALIZE UNDERSTANDING. NOTIFIED MD TAMMI SMALLWOOD AND SHAPER MACHINE HAND KIZZY AT 0620. CALLED RESPONSIBLE CONSTITUTION PARTY JERRY (PATIENT'S BROTHER) AT 0636 TO NOTIFY HIS OF FALL. NO NEW ORDERS. NEURO CHECKS AND VITAL SIGNS TO BE MONITORED AT FREQUENT INTERVALS.
[2022-04-07 06:47] LABS: HEMATOCRIT 31.8 % (36.7-47.1); MEAN CORPUSCULAR HEMOGLOBIN 21.8 uug (23.8-33.4); MEAN CORPUSCULAR VOLUME 74.6 fL (73.0-96.2); PLATELET COUNT (AUTO) 872 K/uL (152-348)
[2022-04-07 06:52] LABS: BAND % (MANUAL) 2 % (0-10); LYMPHOCYTES % (MANUAL) 20 % (20-40); MONOCYTES % (MANUAL) 6 % (2-10)
[2022-04-07 06:53] LABS: NEUTROPHILS % (MANUAL) 72 % (42-75)
[2022-04-07 07:09] LABS: CARBON DIOXIDE 30 mmol/L (21-32); CHLORIDE 98 mmol/L (98-107); CREATININE 0.3 mg/dL (0.6-1.3); GLUCOSE 165 mg/dL (74-106); MAGNESIUM 2.2 mg/dL (1.8-2.4); PHOSPHOROUS 3.9 mg/dL (2.5-4.9); POTASSIUM 4.4 mmol/L (3.5-5.1); UREA NITROGEN, BLOOD 18 mg/dL (7-18)
[2022-04-07] MEDS: PROTEIN SUPPLEMENT (PROSTAT) 30 ML LIQUID PO SCH (08:00)
[2022-04-07 08:32] LABS: MetHb 0.2 % (0.0-1.5); VT, ABG 500 mL
[2022-04-07] MEDS: GLUCERNA SHAKE 237 ML CAN PO SCH (09:00)
[2022-04-07 09:21] LABS: ABG BASE EXCESS 9.5 mmol/L; ABG HCO3 34.5 mmol/L; ABG PCO2 48.9 mmHg (35.0-45.0); ABG PH 7.466 (7.350-7.450); ABG PO2 95.5 mmHg (75.0-100.0); ABG SITE RIGHT BRACHIAL; ABG TOTAL HEMOGLOBIN 11.2 G/dL (13.5-18.0); COHb 0.5 % (0.5-1.5); O2Hb 97.2 % (94.0-97.0); VENT MODE Nasal Cannula
[2022-04-07] MEDS: FAMOTIDINE 20 MG TABLET PO SCH (11:03)
[2022-04-07] MEDS: CHOLECALCIFEROL 1,000 UNIT TABLET PO SCH (11:03)
[2022-04-07] MEDS: MULTIVITAMINS,THERAPEUTIC TABLET PO SCH (11:03)
[2022-04-07] MEDS: DOCUSATE SODIUM 100 MG CAPSULE PO SCH (11:03)
[2022-04-07] MEDS: APIXABAN 5 MG TABLET PO SCH (11:04)
[2022-04-07 11:40] VITALS: BP 130/80
[2022-04-07] MEDS: INSULIN REGULAR, HUMAN 300 UNIT/3 ML VIAL SQ PRN (12:26)
--- NOTE | 2022-04-07 13:00 | NUR ---
patient said he was SOB and requested breathing treatment. I checked his O2 and it was 98 on 3 L. Called respiratory therapy to give him breathing tx PRN
--- NOTE | 2022-04-07 15:44 | NUR ---
patient got discharged to [facility] and left the hospital at 1430
[2022-04-07] MEDS ORDERED: methylPREDNISolone SOD SUCC 40 MG/ML VIAL IV SCH (21:00)
== END 2022-04-07 15:00 | DRG 871 ==
LOC: ER 17:03 → TRANSITION 22:43 → ICU 03-31 22:10 → CCU 03-31 23:10 → TELE-TD3 04-04 14:28 → TELE3 04-05 17:45
PROVIDERS: ADMIT Nurse Practitioner Acute Care; ATTEND Nurse Practitioner Family
PROC: 5A09457 Assistance with Respiratory Ventilation, 24-96 Consecutive Hours, Continuous Positive Airway Pressure (ICD-10-PCS; principal; 2022-03-30)
DX: A41.9 Sepsis, unspecified organism (principal); G93.41 Metabolic encephalopathy; J15.6 Pneumonia due to other Gram-negative bacteria; J96.21 Acute and chronic respiratory failure with hypoxia; J96.22 Acute and chronic respiratory failure with hypercapnia; E44.0 Moderate protein-calorie malnutrition; E87.20 Acidosis, unspecified; J44.0 Chronic obstructive pulmonary disease with (acute) lower respiratory infection; Z68.1 Body mass index [BMI] 19.9 or less, adult; Z20.822 Contact with and (suspected) exposure to COVID-19; D50.9 Iron deficiency anemia, unspecified; E11.9 Type 2 diabetes mellitus without complications; E87.5 Hyperkalemia; E88.09 Other disorders of plasma-protein metabolism, not elsewhere classified; F20.9 Schizophrenia, unspecified; I10 Essential (primary) hypertension; K21.9 Gastro-esophageal reflux disease without esophagitis; J62.8 Pneumoconiosis due to other dust containing silica; Z79.4 Long term (current) use of insulin; F32.A Depression, unspecified; F41.9 Anxiety disorder, unspecified; I27.20 Pulmonary hypertension, unspecified; D86.0 Sarcoidosis of lung
CPT/HCPCS: 36415; 36600; 51702; 70030-TC; 70450; 71045; 71250; 83550; 83605; 83735; 84100; 84484; 85025; 86140; 87040; 87400; 93005; 93307; 94660; 94664; A4663; A6213; C1758; G0378; J0456; J0692; J0696; J1650; J1815; J1940; J2060; J2920; J3490; J3590; J7050; Q0144; U0003

== ENCOUNTER 2022-05-05 22:23 | Inpatient (IN) | payer MEDICARE, OTHER ==
[~2022-05-05] VITALS: Ht 154.9 cm; Wt 45.4 kg
[~2022-05-05 22:23] MED LIST: ACET-2154 PO; ACET-2605 PO; APIX5TAB PO; ASCO500T10 PO; BENZ-13 PO; BLOO-360 IN; CEFE1FRO IV; CHOL-35 PO; CRAN3875 PO; CRAN425C6 PO; DOCU-141 PO; ERTU5TAB PO; FAMO-132 PO; FERR325T28 PO; HYDR-4209 PO; INSU100I45 SQ; IPRA0.2S6 NEB; MAGN400O6 PO; MULT-1075 PO; PRED20TA PO; QUET50TA PO; SILD20TA2 PO; SITA100T PO
[2022-05-05] MEDS ORDERED: ERTU5TAB PO (22:59)
[2022-05-05 23:20] LABS: HEMATOCRIT 36.2 % (36.7-47.1); MEAN CORPUSCULAR HEMOGLOBIN 23.6 uug (23.8-33.4); MEAN CORPUSCULAR VOLUME 78.4 fL (73.0-96.2); PLATELET COUNT (AUTO) 947 K/uL (152-348)
[2022-05-05 23:41] LABS: MAGNESIUM 2.1 mg/dL (1.8-2.4)
[2022-05-05 23:48] LABS: CARBON DIOXIDE 39 mmol/L (21-32); CHLORIDE 97 mmol/L (98-107); CREATININE 0.4 mg/dL (0.6-1.3); GLUCOSE 117 mg/dL (74-106); POTASSIUM 4.3 mmol/L (3.5-5.1); UREA NITROGEN, BLOOD 17 mg/dL (7-18)
[2022-05-06] MEDS ORDERED: VANCOMYCIN IV 750 MG in IV DEXTROSE 5% 150 ML IV ONE (00:30)
[2022-05-06] MEDS ORDERED: PIPERACILLIN SODIUM/TAZOBACTAM 3.375 G in IV DEXTROSE 5% 50 ML IV ONE ×2 (00:30→06:15)
--- NOTE | 2022-05-06 00:31 | NUR ---
Called [facility] for panel call, GUSTAVO ANTUNEZ neonatal specialist.
[2022-05-06] MEDS ORDERED: PIPERACILLIN SODIUM/TAZO 3.375 GM VIAL ONE (00:32)
[2022-05-06] MEDS ORDERED: PIPERACILLIN/TAZOBACTAM/D5W 50 ML IV ONE ×2 (00:34→06:16)
--- NOTE | 2022-05-06 00:41 | NUR ---
Dr. Joyec on panel call with Tenzin CHEN. Pending admission
[2022-05-06 00:48] LABS: ABG BASE EXCESS 14.1 mmol/L; ABG HCO3 41.2 mmol/L; ABG PCO2 66.5 mmHg (35.0-45.0); ABG PO2 338.4 mmHg (75.0-100.0); ABG SITE RIGHT RADIAL; MetHb 0.4 % (0.0-1.5); O2Hb 99.3 % (94.0-97.0)
--- NOTE | 2022-05-06 00:50 | NUR ---
Performed skin assessment and pernieal care. Noted dry flaky skin on perineal area and sacrum. Also noted 3 small open wounds on sacrum. Patient will be turned Q2 hours to maintain skin integrity.
--- NOTE | 2022-05-06 01:16 | NUR ---
Pulled out IV Vancomycin. Currently no IV pumps avaliable in the floor. Called Luis [employer]Broadcast Operations Engineer to obtain IV pump to start Vancomycin.
[2022-05-06] MEDS ORDERED: VANCOMYCIN 1000 MG VIAL ONE (01:35)
[2022-05-06] MEDS ORDERED: ACETAMINOPHEN 325 MG TABLET PO PRN (01:45)
[2022-05-06] MEDS ORDERED: REMEDY ESSENTIAL ZINC PASTE 113 GM TP PRN (01:45)
[2022-05-06] MEDS ORDERED: ONDANSETRON 4 MG/2 ML VIAL IV PRN (01:45)
[2022-05-06] MEDS ORDERED: MAGNESIUM HYDROXIDE 30 ML LIQUID UDC PO PRN (01:45)
[2022-05-06] MEDS ORDERED: DEXTROSE 50% 50 ML DISP.SYRIN IV PRN (01:45)
--- NOTE | 2022-05-06 01:53 | NUR ---
Took out 1g Vancomycin IV vial and wasted 2.5cc.
--- NOTE | 2022-05-06 01:54 | NUR ---
Reconstituted 750mg Vancomycin IV in Dextrose 5% 150ml.
--- NOTE | 2022-05-06 02:26 | NUR ---
Called third floor for AMBROCIO bed. Spoke to Daisy KEE. Waiting for bed assignment.
--- NOTE | 2022-05-06 05:59 | NUR ---
Spoke to Daisy KEE. Patient has been assigned to third floor Room 307.
--- NOTE | 2022-05-06 06:00 | NUR ---
Called pharmacist for verification of scheduled 06:00am Zosyn 3.375 g in IV Dextrose 5% 50ml.
--- NOTE | 2022-05-06 06:55 | NUR ---
Verified Zosyn 3.375g in IV Dextrose 5% 50ml started at 06:22.
--- NOTE | 2022-05-06 07:00 | NUR ---
Report given to Daisy KEE
--- NOTE | 2022-05-06 07:12 | NUR ---
Patient taken to third floor room 307 via gurney in stable conditions, no signs of distress with personal belongings.
[2022-05-06 07:44] VITALS: BP 96/62
[2022-05-06 08:26] LABS: HEMATOCRIT 34.1 % (36.7-47.1); MEAN CORPUSCULAR HEMOGLOBIN 23.7 uug (23.8-33.4); MEAN CORPUSCULAR VOLUME 79.1 fL (73.0-96.2); PLATELET COUNT (AUTO) 873 K/uL (152-348)
[2022-05-06] MEDS: BLOOD SUGAR DIAGNOSTIC 1 EACH STRIP VI SCH ×4 (08:30→21:00)
[2022-05-06 08:34] LABS: CARBON DIOXIDE 39 mmol/L (21-32); CHLORIDE 95 mmol/L (98-107); CREATININE 0.3 mg/dL (0.6-1.3); GLUCOSE 97 mg/dL (74-106); POTASSIUM 3.8 mmol/L (3.5-5.1); UREA NITROGEN, BLOOD 16 mg/dL (7-18)
[2022-05-06 09:12] LABS: ALANINE AMINOTRANSFERASE < 6 U/L (16-63); ALKALINE PHOSPHATASE 121 U/L (50-136); ASPARTATE AMINOTRANSFERASE 23 U/L (15-37); BILIRUBIN,TOTAL 0.3 mg/dL (0.2-1.0); FERRITIN 1840 ng/mL (26-388); MAGNESIUM 1.8 mg/dL (1.8-2.4); TOTAL PROTEIN, SERUM 6.8 g/dL (6.4-8.2)
[2022-05-06 11:54] VITALS: BP 98/63
--- NOTE | 2022-05-06 12:40 | NUR ---
WOUND CARE CONSULT: PT PRESENTS WITH SACRAL STAGE 2 ULCER WELL RASH TO PERINEUM, BUTTOCKS, GROIN FOLDS, PRESENT ON ADMISSION. PT IS CACHECTIC. DIETARY CONSULT IN PLACE. DISCUSSED SKIN PROTECTION AND WOUND CARE RECOMMENDATIONS WITH NURSING STAFF. IN AGREEMENT WITH PLAN OF CARE. Addendum: 05/06/22 at 1241 by JUWAN VELEZ RN Amended: Links added.
[2022-05-06 13:11] LABS: IRON, SERUM 13 ug/dL (50-175)
[2022-05-06] MEDS: PIPERACILLIN SODIUM/TAZOBACTAM 3.375 G in IV DEXTROSE 5% 50 ML IV SCH ×3 (13:37→23:55)
[2022-05-06 16:29] VITALS: BP 138/77
[2022-05-06] MEDS: CLOTRIMAZOLE 1% CREAM 30 GM TUBE TOP SCH (17:54)
[2022-05-06] MEDS ORDERED: methylPREDNISolone SOD SUCC 40 MG/ML VIAL IV SCH (18:30)
--- NOTE | 2022-05-06 18:49 | NUR ---
SHIFT NOTE. PT IS ADMITTED TO AMBROCIO FLOOR. PT AOX3-4, PANAMANIAN SPEAKING; NON AMBULATORY; INCONTINENT OF BOTH; CAME TO THE HOSPITAL BECAUSE OF WORSENING OF BREATHING. PT WAS DX OF HYPOXIA. ABG PCO2- 66.2. HE WAS ON NON RE-BREATHER ON THE ER BUT D/C WHEN TRANSFER TO THE FLOOR. PT ON 3L NC SATURATING 95-96. R WRIST 20G IV ACCESS PATENT ANT INTACT, SINUS TACHY ON THE MONITOR HR 120-130. SACRUM, BUTTOCK EXCORIATION AND SACRAL WOUND NOTED. WOUND CARE CONSULTED. NEW WOUND TX ORDERED. CONDOM CATH IN PLACED. PT HAVE NO APPETITE TO EAT, BUT DRINK ENSURE OKAY. VITALS WNL. 1800- PT COMPLAIN OF SOB, SATURATING 70'S. SWITCHED NC TO FACE MASK AT 6L; PT SAT 98%. LUIS ALEGRIA SEEN THE PT. NEW ORDER WAS PLACED. Addendum: 05/06/22 at 1901 by DAVID WALDEN RN WILL ENDORSED TO NOC SHIFT.
[2022-05-06] MEDS: methylPREDNISolone SOD SUCC 40 MG/ML VIAL IV SCH ×2 (19:04→21:02)
[2022-05-06 20:00] VITALS: BP 110/68
[2022-05-06] MEDS: VANCOMYCIN IV 750 MG in IV DEXTROSE 5% 250 ML IV SCH (21:02)
[2022-05-06] MEDS: INSULIN REGULAR, HUMAN 300 UNIT/3 ML VIAL SQ PRN (23:50)
[2022-05-07 00:12] VITALS: BP 101/62
[2022-05-07 04:00] VITALS: BP 99/64
[2022-05-07] MEDS: PIPERACILLIN SODIUM/TAZOBACTAM 3.375 G in IV DEXTROSE 5% 50 ML IV SCH ×3 (06:07→17:24)
[2022-05-07] MEDS: methylPREDNISolone SOD SUCC 40 MG/ML VIAL IV SCH ×3 (06:12→21:39)
--- NOTE | 2022-05-07 06:15 | NUR ---
Shift note: RECEIVED REPORT FROM AM NURSE HORACE PT SLEEPING WHEN ENTERING THE ROOM NO SIGNS OF DISTRESS NOTED FALL AND SAFETY PRECAUTIONS MAINTAINED. MEDICATION GIVEN ORDERED NO SIGNS OF ADVERSE REACTION NOTED. PT HS BLOOD SUGAR 170 GAVE 3 UNITS OF REG NO SIGNS OF DIABETIC REACTION. PT AM BLOOD SUGAR IS 112 NO SIGNS OF DIABETIC REACTION NOTED NO COVERAGE REQUIRED WILL ENDORSE TO AM NURSE. Addendum: 05/07/22 at 0719 by [facility] INPATIENT RN17 RN ERROR ON BLOOD SUGAR IS 110 INSTEAD OF 112
[2022-05-07] MEDS: BLOOD SUGAR DIAGNOSTIC 1 EACH STRIP VI SCH ×4 (07:19→21:39)
[2022-05-07 07:32] VITALS: BP 101/59
--- NOTE | 2022-05-07 08:00 | NUR ---
RESTING WITH EYES CLOSED ON 8L O2 VIA MASK SATURATING 92% SR/ST ON MONITOR CONTINUE WITH AMBROCIO MONITORING
[2022-05-07 08:22] LABS: HEMATOCRIT 33.2 % (36.7-47.1); MEAN CORPUSCULAR HEMOGLOBIN 23.7 uug (23.8-33.4); MEAN CORPUSCULAR VOLUME 79.1 fL (73.0-96.2); PLATELET COUNT (AUTO) 843 K/uL (152-348)
[2022-05-07 08:23] LABS: CARBON DIOXIDE 36 mmol/L (21-32); CHLORIDE 96 mmol/L (98-107); CREATININE 0.4 mg/dL (0.6-1.3); GLUCOSE 108 mg/dL (74-106); MAGNESIUM 1.9 mg/dL (1.8-2.4); PHOSPHOROUS 3.8 mg/dL (2.5-4.9); POTASSIUM 4.4 mmol/L (3.5-5.1); UREA NITROGEN, BLOOD 16 mg/dL (7-18)
[2022-05-07] MEDS: CLOTRIMAZOLE 1% CREAM 30 GM TUBE TOP SCH ×2 (09:30→17:24)
[2022-05-07 09:42] LABS: THYROID STIMULATING HORMONE 0.132 mIU/mL (0.358-3.740)
[2022-05-07] MEDS: INSULIN REGULAR, HUMAN 300 UNIT/3 ML VIAL SQ PRN ×3 (11:56→22:04)
[2022-05-07 11:58] VITALS: BP 101/57
--- NOTE | 2022-05-07 12:00 | NUR ---
PATIENT C/O ON AND OFF SOB COUGHING PRODUCTIVELY BUT UNABLE TO COUGH OUT. BREATHING TX GIVEN ORDER WITH TEMPORARY RELIEF. SR/ST ON MONITOR
[2022-05-07] MEDS: ALBUTEROL SULFATE 2.5 MG/3 ML NEBU NEB PRN (12:12)
[2022-05-07] MEDS: IPRATROPIUM BROMIDE 0.5 MG/2.5 ML NEBU NEB PRN (12:16)
[2022-05-07 15:37] VITALS: BP 100/61
[2022-05-07] MEDS ORDERED: MORPHINE SULFATE 2 MG/1 ML DISP.SYRIN IV PRN (17:00)
[2022-05-07 17:12] LABS: ABG BASE EXCESS 5.5 mmol/L; ABG HCO3 33.5 mmol/L; ABG PCO2 67.4 mmHg (35.0-45.0); ABG PH 7.314 (7.350-7.450); ABG PO2 176.2 mmHg (75.0-100.0); ABG SITE RIGHT RADIAL; ABG TOTAL HEMOGLOBIN 11.5 G/dL (13.5-18.0); COHb 0.3 % (0.5-1.5); MetHb 0.3 % (0.0-1.5); O2Hb 98.7 % (94.0-97.0)
[2022-05-07] MEDS: VANCOMYCIN IV 750 MG in IV DEXTROSE 5% 250 ML IV SCH (17:24)
--- NOTE | 2022-05-07 18:48 | NUR ---
SEEN BY HOSPITALIST FOR FOLLOW-UP, ABG DONE NOTED RESULTS. PATIENT STARTED ON VENTURI MASK SATURATING 94%. PATIENT RESTING COMFORTABLY AFTER
[2022-05-07 20:00] VITALS: BP 103/61
--- NOTE | 2022-05-07 20:30 | NUR ---
Received patient in bed, alert oriented, on continous on 8 liters ventri mask, sat 99 to 100%, no complain of sob no complain of chest pain, kept comfortable, cont to monitor.
--- NOTE | 2022-05-07 21:47 | NUR ---
patient blood sugar 147 supposed to have 2 units of humulog r but refused.
[2022-05-07] MEDS: MUPIROCIN 2% OINT 22 GM TUBE TP SCH (21:56)
--- NOTE | 2022-05-07 22:04 | NUR ---
patient changed his mind took his 2 units regular insulin as ordered.
[2022-05-08] VITALS (8 sets, daily range): BP systolic 98–155; BP diastolic 58–76
--- NOTE | 2022-05-08 00:35 | NUR ---
Patient complaining of difficulty breathing due to Bipap, patient refused the bipap, put back on ventri mask oxygen,
--- NOTE | 2022-05-08 00:41 | NUR ---
23:45- PATIENT PLACED ON CPAP 8, WITH LARGE FULL MASK, THEN SAYING HE FEELS ITS HARDER TO BREATH, PT SPEAKS SYRIAC, GOT NURSE TO INTERPRET, PT FELT BETTER ON VENTI/ MASK @ 35%, NURSE WIL. Raymundo NOTIFIED. Kika FRANCEP Addendum: 05/08/22 at 0044 by STEVE HOFFMAN RT Amended: Links added.
[2022-05-08] MEDS: PIPERACILLIN SODIUM/TAZOBACTAM 3.375 G in IV DEXTROSE 5% 50 ML IV SCH ×4 (00:43→17:12)
[2022-05-08] MEDS: methylPREDNISolone SOD SUCC 40 MG/ML VIAL IV SCH ×3 (05:32→21:24)
[2022-05-08] MEDS: BLOOD SUGAR DIAGNOSTIC 1 EACH STRIP VI SCH ×4 (06:38→21:24)
--- NOTE | 2022-05-08 06:39 | NUR ---
Patient asleep no sob no chest pain noted, tele sinus rhythm sat 100%, cont on venturi mask at 8 liters, sat wnl, no coughing noted, afebrile, cont to monitor.
[2022-05-08 08:02] LABS: HEMATOCRIT 31.1 % (36.7-47.1); MEAN CORPUSCULAR HEMOGLOBIN 23.2 uug (23.8-33.4); MEAN CORPUSCULAR VOLUME 78.8 fL (73.0-96.2); PLATELET COUNT (AUTO) 863 K/uL (152-348)
[2022-05-08] MEDS: MUPIROCIN 2% OINT 22 GM TUBE TP SCH ×2 (08:52→20:37)
[2022-05-08] MEDS: CLOTRIMAZOLE 1% CREAM 30 GM TUBE TOP SCH ×2 (08:53→16:38)
[2022-05-08] MEDS: INSULIN REGULAR, HUMAN 300 UNIT/3 ML VIAL SQ PRN ×4 (08:55→21:26)
[2022-05-08 09:06] LABS: CARBON DIOXIDE 33 mmol/L (21-32); CHLORIDE 95 mmol/L (98-107); CREATININE 0.5 mg/dL (0.6-1.3); GLUCOSE 149 mg/dL (74-106); PHOSPHOROUS 2.6 mg/dL (2.5-4.9); POTASSIUM 3.7 mmol/L (3.5-5.1); UREA NITROGEN, BLOOD 23 mg/dL (7-18)
[2022-05-08 09:28] LABS: MAGNESIUM 1.9 mg/dL (1.8-2.4)
[2022-05-08] MEDS: IPRATROPIUM BROMIDE 0.5 MG/2.5 ML NEBU NEB PRN (10:22)
[2022-05-08] MEDS: ALBUTEROL SULFATE 2.5 MG/3 ML NEBU NEB PRN (10:22)
--- NOTE | 2022-05-08 10:40 | NUR ---
PATIENT COMPLAINING OF PAIN AND DISCOMFORT, MORPHINE 5MG IV GIVEN. KEEP PATIENT RESTED AND MONITORED
[2022-05-08] MEDS: GLUCERNA SHAKE 237 ML CAN PO SCH ×2 (11:40→16:37)
--- NOTE | 2022-05-08 12:00 | NUR ---
PATIENT SATURATING 88% O2 SETTINGS CHANGE TO 15LPM NON REBREATHING MASK, CONTINUE AMBROCIO STATUS
[2022-05-08] MEDS: VANCOMYCIN IV 750 MG in IV DEXTROSE 5% 250 ML IV SCH ×2 (14:07→21:33)
--- NOTE | 2022-05-08 15:59 | NUR ---
PATIENT PLACED ON VENTURI MASK 35% SATURATING 94% NO SIGNS OF DISTRESS, FULL ASSIST WITH MEALS. SINUS RHYTHM ON MONITOR
[2022-05-08] MEDS: ENSURE WITH FIBER 237 ML LIQUID (CHOCOLATE) PO SCH (16:37)
--- NOTE | 2022-05-08 19:40 | NUR ---
Received patient in bed, alert oriented, able to make needs known, no sob no complain of chest pain, on 6 liters venturi mask sat 95 to 100% appear relax. condom cath patent, draining with yellow color urine in moderate amount, cont to monitor.
[2022-05-09] MEDS: PIPERACILLIN SODIUM/TAZOBACTAM 3.375 G in IV DEXTROSE 5% 50 ML IV SCH ×4 (00:41→17:24)
--- NOTE | 2022-05-09 05:01 | NUR ---
Patient asleep but arousable, no complain of pain, no s/s of sob, cont on 6 liters on venturi mask sat 98 to 100%, kept clean and dry, call light within reach.
[2022-05-09] MEDS: methylPREDNISolone SOD SUCC 40 MG/ML VIAL IV SCH ×3 (05:20→21:56)
[2022-05-09] MEDS: BLOOD SUGAR DIAGNOSTIC 1 EACH STRIP VI SCH ×4 (05:28→21:56)
[2022-05-09 05:32] LABS: CHLORIDE 97 mmol/L (98-107); CREATININE 0.3 mg/dL (0.6-1.3); GLUCOSE 168 mg/dL (74-106); POTASSIUM 3.6 mmol/L (3.5-5.1); UREA NITROGEN, BLOOD 27 mg/dL (7-18)
[2022-05-09 05:40] LABS: CARBON DIOXIDE 40 mmol/L (21-32)
--- NOTE | 2022-05-09 05:45 | NUR ---
Patient latest chemistry carbon dioxide 40, notify Erik Dave NP.
[2022-05-09] MEDS: VANCOMYCIN IV 750 MG in IV DEXTROSE 5% 250 ML IV SCH ×3 (06:05→21:59)
[2022-05-09 06:22] VITALS: BP 113/69
[2022-05-09 07:42] VITALS: BP 118/69
[2022-05-09] MEDS ORDERED: PROTEIN SUPPLEMENT (PROSTAT) 30 ML LIQUID PO SCH (08:00)
--- NOTE | 2022-05-09 08:00 | NUR ---
resting in bed, on venturi mask at 6L- sat at 94%, no distress noted, tele SR, states will eat later, safety measures maintained, call light within reach
[2022-05-09] MEDS: INSULIN REGULAR, HUMAN 300 UNIT/3 ML VIAL SQ PRN ×4 (08:04→22:11)
[2022-05-09] MEDS: ENSURE WITH FIBER 237 ML LIQUID (CHOCOLATE) PO SCH ×3 (08:07→17:00)
[2022-05-09] MEDS: GLUCERNA SHAKE 237 ML CAN PO SCH ×3 (08:08→17:00)
[2022-05-09] MEDS: MUPIROCIN 2% OINT 22 GM TUBE TP SCH ×2 (09:31→21:57)
[2022-05-09] MEDS: CLOTRIMAZOLE 1% CREAM 30 GM TUBE TOP SCH ×2 (09:34→17:21)
--- NOTE | 2022-05-09 10:00 | NUR ---
condom cath out and replaced, perineal and sacral treatment done, denies of pain, ate cream of wheat of breakfast, poor appetite
[2022-05-09 11:12] VITALS: BP 118/68
[2022-05-09 15:09] VITALS: BP 141/60
--- NOTE | 2022-05-09 18:31 | NUR ---
no distress noted, all needs attended and met, remains on Venturi mask at 6l, call light within reach
--- NOTE | 2022-05-09 19:35 | NUR ---
Received patient in bed alert oriented, no sob no chest pain, cont on venturi mask at 6 liters, tolerate well, v/s wnl cont to monitor.
[2022-05-09 20:32] VITALS: BP 97/57
--- NOTE | 2022-05-10 | NUR ---
Patient agreed to be on BIPAP, tolerate well, cont abx for infection, no sob no chest pain, turn and reposition as tolerate, cont to monitor.
[2022-05-10] MEDS: PIPERACILLIN SODIUM/TAZOBACTAM 3.375 G in IV DEXTROSE 5% 50 ML IV SCH ×4 (00:26→17:44)
[2022-05-10] MEDS: methylPREDNISolone SOD SUCC 40 MG/ML VIAL IV SCH (05:14)
[2022-05-10 05:31] VITALS: BP 118/65
[2022-05-10] MEDS: BLOOD SUGAR DIAGNOSTIC 1 EACH STRIP VI SCH ×3 (05:31→17:06)
[2022-05-10] MEDS: VANCOMYCIN IV 750 MG in IV DEXTROSE 5% 250 ML IV SCH ×2 (05:32→14:57)
[2022-05-10] MEDS: GLUCERNA SHAKE 237 ML CAN PO SCH ×3 (08:00→17:07)
[2022-05-10 08:19] LABS: CARBON DIOXIDE 39 mmol/L (21-32); CHLORIDE 95 mmol/L (98-107); CREATININE 0.4 mg/dL (0.6-1.3); GLUCOSE 211 mg/dL (74-106); PHOSPHOROUS 2.3 mg/dL (2.5-4.9); POTASSIUM 3.2 mmol/L (3.5-5.1); UREA NITROGEN, BLOOD 15 mg/dL (7-18)
[2022-05-10 09:16] LABS: ABG BASE EXCESS 14.6 mmol/L; ABG HCO3 39.8 mmol/L; ABG PCO2 52.4 mmHg (35.0-45.0); ABG PH 7.498 (7.350-7.450); ABG PO2 70.2 mmHg (75.0-100.0); ABG SITE LEFT RADIAL; ABG TOTAL HEMOGLOBIN 10.9 G/dL (13.5-18.0); COHb 0.9 % (0.5-1.5); MetHb 0.3 % (0.0-1.5); O2Hb 93.9 % (94.0-97.0); VENT MODE Mask - Venturi
[2022-05-10 09:50] LABS: HEMATOCRIT 34.1 % (36.7-47.1); MEAN CORPUSCULAR HEMOGLOBIN 23.6 uug (23.8-33.4); MEAN CORPUSCULAR VOLUME 78.5 fL (73.0-96.2); PLATELET COUNT (AUTO) 774 K/uL (152-348)
[2022-05-10] MEDS: ENSURE WITH FIBER 237 ML LIQUID (CHOCOLATE) PO SCH (09:52)
[2022-05-10] MEDS: MUPIROCIN 2% OINT 22 GM TUBE TP SCH (09:58)
[2022-05-10] MEDS: CLOTRIMAZOLE 1% CREAM 30 GM TUBE TOP SCH ×2 (09:58→17:07)
[2022-05-10] MEDS: INSULIN REGULAR, HUMAN 300 UNIT/3 ML VIAL SQ PRN ×3 (10:01→17:42)
[2022-05-10] MEDS: PROTEIN SUPPLEMENT (PROSTAT) 30 ML LIQUID PO SCH ×2 (10:15→17:07)
[2022-05-10] MEDS: ALBUTEROL SULFATE 2.5 MG/3 ML NEBU NEB PRN (10:57)
[2022-05-10] MEDS: IPRATROPIUM BROMIDE 0.5 MG/2.5 ML NEBU NEB PRN (10:57)
[2022-05-10] MEDS ORDERED: POTASSIUM PHOSPHATE MM 15 MMOL in IV NORMAL SALINE 250 ML IV ONE (12:00)
[2022-05-10] MEDS: POTASSIUM CHLORIDE 20 MEQ TAB.PRT.SR PO SCH ×2 (13:13→15:18)
[2022-05-10 16:00] VITALS: BP 104/62
--- NOTE | 2022-05-10 19:02 | NUR ---
1902: Report given to Stephon at receiving facility. Patient awaiting transportation.
[2022-05-10] MEDS ORDERED: methylPREDNISolone SOD SUCC 40 MG/ML VIAL IV SCH (21:00)
== END 2022-05-10 20:42 | disposition hospice, home (50) | DRG 193 ==
LOC: ER 22:23 → TELE-TD3 05-06 07:04 → TELE3 05-09 16:50
PROVIDERS: ADMIT Nurse Practitioner Acute Care; ATTEND Nurse Practitioner Acute Care
DX: J15.9 Unspecified bacterial pneumonia (principal); J96.21 Acute and chronic respiratory failure with hypoxia; J96.22 Acute and chronic respiratory failure with hypercapnia; E44.0 Moderate protein-calorie malnutrition; Z68.1 Body mass index [BMI] 19.9 or less, adult; E87.3 Alkalosis; N17.9 Acute kidney failure, unspecified; R64 Cachexia; J98.11 Atelectasis; J44.0 Chronic obstructive pulmonary disease with (acute) lower respiratory infection; J84.10 Pulmonary fibrosis, unspecified; D64.9 Anemia, unspecified; D72.829 Elevated white blood cell count, unspecified; E11.9 Type 2 diabetes mellitus without complications; E83.52 Hypercalcemia; E86.0 Dehydration; F20.9 Schizophrenia, unspecified; K21.9 Gastro-esophageal reflux disease without esophagitis; Z66 Do not resuscitate; Z79.01 Long term (current) use of anticoagulants; Z79.4 Long term (current) use of insulin; E88.09 Other disorders of plasma-protein metabolism, not elsewhere classified; J44.9 Chronic obstructive pulmonary disease, unspecified; I25.10 Atherosclerotic heart disease of native coronary artery without angina pectoris; F41.9 Anxiety disorder, unspecified; F32.A Depression, unspecified; J62.8 Pneumoconiosis due to other dust containing silica; Z20.822 Contact with and (suspected) exposure to COVID-19; Z22.322 Carrier or suspected carrier of Methicillin resistant Staphylococcus aureus; I11.0 Hypertensive heart disease with heart failure; I50.9 Heart failure, unspecified
CPT/HCPCS: 36415; 36600; 71045; 82803; 83550; 83605; 83735; 84100; 84443; 84484; 85025; 87040; 93005; 94640; 94660; 94664; A6209; A6213; G0378; J1815; J2270; J2543; J2920; J3370; J3490; J3590; J7050